=== PATIENT | female | born 1990 | race Caucasian/White ===

== ENCOUNTER 2017-10-26 10:15 | Emergency (ER) | payer MEDICAID, OTHER ==
[2017-10-26 11:07] VITALS: BP 135/73
--- NOTE | 2017-10-26 12:29 | ED ---
Respiratory - HPI Summary HPI Summary: 27 yr old female with cough, runny nose, myalgias, fever. Onset yesterday. She is 26 weeks . She thinks she has the flu. No other complaints. - History of Current Complaint Chief Complaint: UCGeneralIllness Stated Complaint: FLU SYMPTOMS Time Seen by Provider: 10/26/17 11:56 Pain Intensity: 7 - Allergy/Home Medications Allergies/Adverse Reactions: Allergies Allergy/AdvReac Type Severity Reaction Status Date / Time Penicillins Allergy Unknown Hives Verified 10/26/17 10:59 Sulfa Antibiotics Allergy Unknown Hives Verified 10/26/17 10:59 Home Medications: Home Medications Naproxen Sodium [Naproxen Sodium 220 mg cap] 220 mg PO DAILY PRN 10/26/17 [ History Confirmed 10/26/17] Vit W/ Iron Carbonyl- [ Plus Iron 29-1 mg] 1 tab PO DAILY 10/26 [History Confirmed 10/26/17] PMH/Surg Hx/FS Hx/Imm Hx Endocrine/Hematology History: Denies: Hx Anticoagulant Therapy, Hx Diabetes Cardiovascular History: Denies: Hx Congestive Heart Failure, Hx Hypertension - Surgical History Surgery Procedure, Year, and Place: tubes placed in her ears as a child Infectious Disease History: Yes Infectious Disease History: Reports: Hx of Known/Suspected MRSA Denies: Traveled Outside the [place] in Last 30 Days - Family History Known Family History: Positive: None - Social History Alcohol Use: Rare Substance Use Type: Reports: None Smoking Status (MU): Current Every Day Smoker Type: Cigarettes Amount Used/How Often: 1/2 PPD Length of Time of Smoking/Using Tobacco: 5 YRS Have You Smoked in the Last Year: Yes Review of Systems Positive: Fever, Chills Positive: Sore Throat, Nasal Discharge Positive: Cough All Other Systems Reviewed And Are Negative: Yes Physical Exam Triage Information Reviewed: Yes Vital Signs On Initial Exam: Initial Vitals Temp Pulse Resp BP Pulse Ox 98.3 F 99 26 135/73 99 10/26/17 11:01 10/26/17 11:01 10/26/17 11:01 10/26/17 11:01 10/26/17 11:01 Vital Signs Reviewed: Yes Appearance: Positive: Well-Appearing, No Pain Distress Skin: Positive: Warm, Skin Color Reflects Adequate Perfusion Head/Face: Positive: Normal Head/Face Inspection Eyes: Positive: EOMI ENT: Positive: Pharynx normal, Nasal congestion, TMs normal Neck: Positive: Nontender Respiratory/Lung Sounds: Positive: Clear to Auscultation, Breath Sounds Present Cardiovascular: Positive: RRR. Negative: Murmur Musculoskeletal: Positive: Strength/ROM Intact Neurological: Positive: Sensory/Motor Intact, Alert, Oriented to Person Place, Time, CN Intact II-III - Erik Coma Scale Best Eye Response: 4 - Spontaneous Best Motor Response: 6 - Obeys Commands Best Verbal Response: 5 - Oriented Coma Scale Total: 15 Diagnostics - Vital Signs Vital Signs Temp Pulse Resp BP Pulse Ox 10/26/17 11:01 98.3 F 99 26 135/73 99 - Laboratory Lab Results: Lab Results 10/26/17 Range/Units 12:02 Influenza A (Rapid) Positive H (Negative) Influenza B (Rapid) Negative (Negative) Lab Statement: Any lab studies that have been ordered have been reviewed, and results considered in the medical decision making process. Disposition - Course Course Of Treatment: 27 yr old female with Influenza A. I have discused the case with [employer] corporate relations director and they recommend Tamiflu for the 26 week woman as the benefits in their opinion outweigh risks. Dr Sayda Terrazas from the OB practice in [place], [place] was contacted by phone regarding this patient who is in their practice and recommends Tamiflu for this patient. The patient is asking for Tamiflu as well, and is aware I discussed this with her OB corporate relations director. - Diagnoses Provider Diagnoses: Influenza A Discharge - Discharge Plan Condition: Good Disposition: HOME Prescriptions: Oseltamivir CAP* [Tamiflu CAP*] 75 mg PO BID #10 cap Patient Education Materials: Influenza (ED) Referrals: No Primary Care Phys,NOPCP [Primary Care Provider] - Sayda Terrazas MD [Medical Doctor] -
== END 2017-10-26 12:45 | disposition home or self-care (01) ==
LOC: UCCORT 10:15
DX: O98.812 Other maternal infectious and parasitic diseases complicating pregnancy, second trimester (principal); J09.X2 Influenza due to identified novel influenza A virus with other respiratory manifestations; O99.332 Smoking (tobacco) complicating pregnancy, second trimester; F17.210 Nicotine dependence, cigarettes, uncomplicated; Z3A.26 26 weeks gestation of pregnancy; Z88.0 Allergy status to penicillin; Z88.2 Allergy status to sulfonamides
CPT/HCPCS: 87502; 99212; G0463

== ENCOUNTER 2018-01-20 20:52 | Inpatient (IN) | payer OTHER ==
[2018-01-20 21:52] LABS: ABS Basophils 0.1 10^3/ul (0-0.2); ABS Eosinophils 0.1 10^3/ul (0-0.6); ABS Lymphocytes 2.5 10^3/ul (1.0-4.8); ABS Monocytes 0.8 10^3/ul (0-0.8); ABS Nucleated RBC 0 10^3/ul; Eosinophil % 0.4 % (0-6); Hematocrit 40 % (35-47); Hemoglobin 14.1 g/dl (12.0-16.0); Lymphocyte % 18.9 % (25-47); Mean Corpuscular HGB Conc 35 g/dl (31-36); Mean Corpuscular Hemoglobin 31 pg (27-31); Mean Corpuscular Volume 88 fL (80-97); Mean Platelet Volume 8.5 um3 (7.4-10.4); Nucleated Red Blood Cells % 0; Platelet Count 235 10^3/ul (150-450); Red Blood Count 4.55 10^6/ul (4.0-5.4); Red Cell Distribution Width 13 % (10.5-15); White Blood Count 13.5 10^3/ul (3.5-10.8)
[2018-01-20] MEDS ORDERED: fentaNYL* 50 MCG/ML 2 ML VIAL (100 MCG VIAL) ONE ×2 (21:54→22:42)
[2018-01-20] MEDS ORDERED: Midazolam* 1 MG/ML 2 ML VIAL (2 MG) ONE (21:59)
[2018-01-20] MEDS ORDERED: Propofol* 10 MG/ML 20 ML BTL IV PUSH ONE ×2 (22:13→22:36)
[2018-01-20] MEDS ORDERED: Succinylcholine* 20 MG/ML 10 ML VIAL ONE (22:13)
[2018-01-20] MEDS ORDERED: Lidocaine 2% PF * 5 ML VIAL ONE (22:13)
[2018-01-20] MEDS ORDERED: NS 0.9% 100 ML* 100 ML with ceFOXitin(*) 2 GM IVPB ONE ×2 (22:15)
[2018-01-20] MEDS ORDERED: EPHEDrine (Pressors)* 50 MG/ML VIAL ONE (23:08)
[2018-01-20] MEDS ORDERED: OXYTOCIN* 10 UNITS/ML 1 ML VIAL ONE (23:09)
[2018-01-20] MEDS: fentaNYL* 50 MCG/ML 2 ML VIAL (100 MCG VIAL) IV PRN ×3 (23:12→23:46)
[2018-01-20] MEDS ORDERED: Naloxone* 0.4 MG/ML 1 ML VIAL IV PRN (23:17)
[2018-01-20] MEDS ORDERED: Ketorolac INJ* 30 MG/ML 1 ML VIAL IV PRN (23:17)
[2018-01-20] MEDS ORDERED: Ondansetron INJ* 2 MG/ML VIAL IV PRN (23:17)
[2018-01-20] MEDS ORDERED: Dibucaine 1% 28.35 GM TUBE PR PRN (23:18)
[2018-01-20] MEDS ORDERED: Acetaminophen TAB* 325 MG PO PRN (23:18)
[2018-01-20] MEDS ORDERED: Witch Hazel PAD* JAR TOPICAL PRN (23:18)
[2018-01-20] MEDS ORDERED: Glycerin ADULT SUPP PR PRN (23:18)
[2018-01-20] MEDS ORDERED: Ketorolac INJ* 30 MG/ML 1 ML VIAL ONE (23:29)
[2018-01-20] MEDS ORDERED: Oxytocin in LR* 20 UNITS/1,000 ML BAG IVPB SCH (23:45)
[2018-01-21] MEDS: fentaNYL* 50 MCG/ML 2 ML VIAL (100 MCG VIAL) IV PRN (00:15)
[2018-01-21] MEDS: oxyCODONE/Acetamin 5/325 MG* TAB PO PRN ×4 (03:18→20:13)
--- NOTE | 2018-01-21 05:06 | OP ---
OPERATIVE REPORT: DATE OF OPERATION: 01/20/18 - Inpatient, room [facility] [place] 118-01. DATE OF : [birth year]. SURGEON: Haleigh Swanson MD. SEARCH MANAGER: Rina Martinez CNM. SECOND PROVINCE ARCHIVIST: Dr. Buck. ANESTHESIOLOGIST: Dr. Fernandez. ANESTHESIA: General endotracheal. GLASS VIAL FILLER: Dr. Churchill. PRE-OP DIAGNOSES: Intrauterine 38-0/7 weeks, category 3 heart tracing remote from delivery; thick meconium. POST-OP DIAGNOSES: Intrauterine 38-0/7 weeks, category 3 heart tracing remote from delivery; thick meconium; delivered. OPERATIVE PROCEDURE: Primary low transverse section. INTRAVENOUS FLUIDS: 1800 cc of crystalloid. ESTIMATED BLOOD LOSS: 600 cc. URINE OUTPUT: 200 cc of clear yellow urine. FINDINGS: Revealed a vertex male infant, weight was 4 pounds 1 ounce, Apgars was 6 at one minute, 7 at five minutes. Intrauterine growth restriction, small placenta with meconium staining in the placenta. Normal-appearing tubes and ovaries bilaterally. Uterine cavity without retained placenta or membranes. COMPLICATIONS: None apparent. DISPOSITION: Stable to recovery room. DESCRIPTION OF PROCEDURE: The patient was placed in dorsal lithotomy position. The abdomen was prepped and draped in a sterile standard fashion. The patient was identified with the universal protocol. Rapid sequence induction was then carried out with general endotracheal anesthesia. An incision was made through the skin. This was carried down through the fascia. Fascia was scoured in the midline and extended bilaterally using Davis scissors and was bluntly superiorly and inferiorly. The peritoneum was then entered bluntly and the incision was extended bluntly. The bladder blade was inserted. Lower uterine segment was identified. Allis was used to tent up the lower uterine segment. The incision was extended bluntly and laterally. The infant was delivered, noted to have thick meconium. No evidence of nuchal cord. The cord was clamped. The was handed off to awaiting pattern generator operator. Appropriate cord blood was then obtained. The placentas was then manually extracted and noted to be small in nature with staining from meconium. Three vessel cord intact. The uterus was exteriorized, wrapped in warm moist laparotomy sponge. The uterine cavity was explored and noted to be free of any placental tissue or membranes. The incision itself in the uterus was reapproximated in 2 layers , first layer running locked, second layer running imbricated. The uterus was returned intraabdominally. Colic gutters were lavaged. Hemostasis was assured at the hysterotomy site. The peritoneum was then reapproximated using 3-0 Vicryl in a running fashion. Subfascial area was lavaged, hemostasis assured and the fascia was reapproximated using 0 Vicryl x2. Subcu was lavaged, hemostasis assured, Bovie coagulation, and the subcutaneous tissue was then reapproximated using a 2-0 Vicryl in an interrupted fashion for multiple closure sites of the subcutaneous Camper's fascia. The skin was then reapproximated using a 4-0 Monocryl in a subcuticular fashion. Mastisol and Steri- Strips applied. All sponge, needle, instrument, and blade counts were correct throughout the case. The patient tolerated the procedure well. The patient was taken then to recovery room after extubation. [id number]/[facility] #: [id number] [facility]ICAL CENTERKori
[2018-01-21] MEDS ORDERED: ceFOXitin(*) 2 GM in NS 0.9% 100 ML* 100 ML IVPB ONE (06:00)
[2018-01-21 07:35] LABS: ABS Basophils 0.1 10^3/ul (0-0.2); ABS Eosinophils 0.1 10^3/ul (0-0.6); ABS Lymphocytes 2.4 10^3/ul (1.0-4.8); ABS Monocytes 0.6 10^3/ul (0-0.8); ABS Neutrophils 8.8 10^3/ul (1.5-7.7); ABS Nucleated RBC 0 10^3/ul; Eosinophil % 0.4 % (0-6); Hematocrit 35 % (35-47); Hemoglobin 12.4 g/dl (12.0-16.0); Lymphocyte % 20.2 % (25-47); Mean Corpuscular HGB Conc 35 g/dl (31-36); Mean Corpuscular Hemoglobin 31 pg (27-31); Mean Corpuscular Volume 89 fL (80-97); Mean Platelet Volume 8.3 um3 (7.4-10.4); Nucleated Red Blood Cells % 0; Platelet Count 184 10^3/ul (150-450); Red Blood Count 3.97 10^6/ul (4.0-5.4); Red Cell Distribution Width 13 % (10.5-15)
[2018-01-21] MEDS ORDERED: Ferrous Gluconate TAB* 324 MG TAB PO SCH (09:00)
[2018-01-21] MEDS: Docusate CAP* 100 MG PO SCH ×3 (09:22→20:13)
[2018-01-21] MEDS: Simethicone TAB* 80 MG TAB.CHEW PO SCH ×4 (09:22→20:13)
[2018-01-21] MEDS: Ibuprofen TAB* 600 MG PO PRN ×2 (11:03→17:35)
[2018-01-21] MEDS: Nicotine PATCH 7 MG/24 HR* PATCH TRANSDERM SCH (11:17)
[2018-01-21] MEDS ORDERED: Influenza VAC *QUAD* 2017-18* 0.5 ML SYRINGE IM ONE (12:00)
[2018-01-21] MEDS ORDERED: Nicotine Patch Removal NOTE PATCH OFF SCH (21:00)
[2018-01-22] MEDS: Docusate CAP* 100 MG PO SCH ×3 (07:17→22:18)
[2018-01-22] MEDS: Simethicone TAB* 80 MG TAB.CHEW PO SCH ×4 (07:17→22:18)
[2018-01-22] MEDS: oxyCODONE/Acetamin 5/325 MG* TAB PO PRN ×3 (07:18→22:24)
[2018-01-22] MEDS: Ibuprofen TAB* 600 MG PO PRN (07:18)
[2018-01-22] MEDS: Ibuprofen TAB* 600 MG PO SCH ×3 (12:27→23:59)
[2018-01-22] MEDS: Nicotine PATCH 7 MG/24 HR* PATCH TRANSDERM SCH (17:24)
[2018-01-23] MEDS: Ibuprofen TAB* 600 MG PO SCH ×3 (06:11→19:53)
[2018-01-23] MEDS: Docusate CAP* 100 MG PO SCH ×2 (08:21→12:50)
[2018-01-23] MEDS: Simethicone TAB* 80 MG TAB.CHEW PO SCH ×3 (08:21→17:36)
[2018-01-23] MEDS: oxyCODONE/Acetamin 5/325 MG* TAB PO PRN (08:21)
[2018-01-23 08:29] VITALS: BP 136/77
[2018-01-23] MEDS: Nicotine PATCH 7 MG/24 HR* PATCH TRANSDERM SCH (12:51)
== END 2018-01-23 20:50 | disposition home or self-care (01) | DRG 540 ==
LOC: MCHOBOUT 20:52 → MCHOB 21:27
PROVIDERS: ADMIT Obstetrics & Gynecology; ATTEND Obstetrics & Gynecology
PROC: 10907ZC Drainage of Amniotic Fluid, Therapeutic from Products of Conception, Via Natural or Artificial Opening (ICD-10-PCS; 2018-01-20)
PROC: 10D00Z1 Extraction of Products of Conception, Low, Open Approach (ICD-10-PCS; 2018-01-20)
PROC: 4A1HXCZ Monitoring of Products of Conception, Cardiac Rate, External Approach (ICD-10-PCS; principal; 2018-01-20 21:54)
DX: O76 Abnormality in fetal heart rate and rhythm complicating labor and delivery (principal); Z68.42 Body mass index [BMI] 45.0-49.9, adult; O77.0 Labor and delivery complicated by meconium in amniotic fluid; O99.214 Obesity complicating childbirth; E66.9 Obesity, unspecified; O99.334 Smoking (tobacco) complicating childbirth; O36.5930 Maternal care for other known or suspected poor fetal growth, third trimester, not applicable or unspecified; F17.200 Nicotine dependence, unspecified, uncomplicated; Z3A.38 38 weeks gestation of pregnancy; Z37.0 Single live birth; Z88.0 Allergy status to penicillin; Z86.14 Personal history of Methicillin resistant Staphylococcus aureus infection
CPT/HCPCS: 36415; 80307; 85025; 86701; 86702; 86703; 86850; 86900; 86901; 87641; 88307; A9270-GY; J0330; J0694; J1885; J2250; J2590; J2704; J3010

== ENCOUNTER 2018-03-28 11:24 | Emergency (ER) | payer OTHER ==
[2018-03-28 12:06] VITALS: BP 116/66
--- NOTE | 2018-03-28 12:28 | UC ---
Skin Complaint HPI - HPI Summary HPI Summary: Patient states that she went to move her hands yesterday and felt something pop just below her scar. She noted a little bit of pus and clear liquid on her hand. She states that she has a history of MRSA so she just wanted to be safe and get it checked. The MRSA was a skin infection on her back. She denies any associated fever or abdominal pain. She is 8-9 weeks . - History of Current Complaint Hx Obtained From: Patient Hx Last Menstrual Period: pt has mirena in place since 03/19/18 Onset/Duration: Sudden Onset Pain Intensity: 0 Aggravating Factor(s): Nothing Alleviating Factor(s): Nothing Associated Signs & Symptoms: Negative: Fever, Chills, Rash <Belinda Rutledge - Last Filed: 03/28/18 12:37> <Eliz Gant - Last Filed: 03/28/18 13:13> - History of Current Complaint Chief Complaint: UCSkin Time Seen by Provider: 03/28/18 12:08 Stated Complaint: SKIN CONCERN - Allergy/Home Medications Allergies/Adverse Reactions: Allergies Allergy/AdvReac Type Severity Reaction Status Date / Time Penicillins Allergy Hives Verified 03/28/18 12:06 Sulfa (Sulfonamide Allergy Hives Verified 03/28/18 12:06 Antibiotics) Review of Systems Constitutional: Negative Skin: Rash - spot on abdomen popped Eyes: Negative ENT: Negative Respiratory: Negative Cardiovascular: Negative Gastrointestinal: Negative Genitourinary: Negative Motor: Negative Neurovascular: Negative Musculoskeletal: Negative Neurological: Negative Psychological: Negative Is Patient Immunocompromised?: No All Other Systems Reviewed And Are Negative: Yes <Belinda Rutledge - Last Filed: 03/28/18 12:37> PMH/Surg Hx/FS Hx/Imm Hx - Additional Past Medical History Additional PMH: 8-9 weeks post , MRSA Other History Of: Negative For: Anticoagulant Therapy - Surgical History Surgical History: Yes Surgery Procedure, Year, and Place: ear tubes. x 1 - Family History Known Family History: Positive: None - Social History Lives: With Family Alcohol Use: None Substance Use Type: None Smoking Status (MU): Heavy Every Day Tobacco Smoker Type: Cigarettes Amount Used/How Often: 1/2 PPD Length of Time of Smoking/Using Tobacco: since age 21 Have You Smoked in the Last Year: Yes Household Exposure Type: Cigarettes - Immunization History Most Recent Influenza Vaccination: unsure Most Recent Tetanus Shot: 2 years ago Most Recent Pneumonia Vaccination: unsure Vaccination Up to Date: Yes <Belinda Rutledge - Last Filed: 03/28/18 12:37> Physical Exam Triage Information Reviewed: Yes Appearance: Well-Appearing Vital Signs: Initial Vital Signs Temp 98 F 03/28/18 11:58 Pulse 67 03/28/18 11:58 Resp 14 03/28/18 11:58 BP 116/66 03/28/18 11:58 Pulse Ox 99 03/28/18 11:58 Vital Signs Reviewed: Yes Eyes: Positive: Conjunctiva Clear ENT: Positive: Normal ENT inspection Neck: Positive: Supple, Nontender, No Lymphadenopathy Respiratory: Positive: Lungs clear, Normal breath sounds Cardiovascular: Positive: RRR, No Murmur Abdomen Description: Positive: Nontender, No Organomegaly, Soft Bowel Sounds: Positive: Present Musculoskeletal: Positive: ROM Intact Neurological: Positive: Alert Psychological: Positive: Normal Response To Family, Age Appropriate Behavior Skin Exam: Normal, Other - 3mm superficial opening in skin just below the c- section scar. Base is pink. Not red, swollen, fluctuant and no draining. Explored with sterile Qtip and no additional depth-culture obtained. <Belinda Rutledge - Last Filed: 03/28/18 12:37> Vital Signs: Initial Vital Signs Temp 98 F 03/28/18 11:58 Pulse 67 03/28/18 11:58 Resp 14 03/28/18 11:58 BP 116/66 03/28/18 11:58 Pulse Ox 99 03/28/18 11:58 <Elzi Gant - Last Filed: 03/28/18 13:13> Course/Dx - Course Course Of Treatment: site cleaned with soap and water then antibiotic and small gauze(non occlusive ) applied. Nothing to suggest abscess, cellulitis or deep tissue infection. Given hx of MRSA plus hx suggest rupture of a pustule, I will cover with bactroban and close f/u for recheck. - Diagnoses Provider Diagnoses: Superficial skin wound <Belinda Rutledge - Last Filed: 03/28/18 12:37> Discharge - Sign-Out/Discharge Documenting (check all that apply): Discharge/Admit/Transfer - Billing Disposition and Condition Condition: STABLE Disposition: Home <Belinda Rutledge - Last Filed: 03/28/18 12:37> - Billing Disposition and Condition Condition: STABLE Disposition: Home <Eliz Gant - Last Filed: 03/28/18 13:13> - Discharge Plan Condition: Stable Disposition: HOME Prescriptions: Mupirocin 2% OINT* [Bactroban 2 % Oint*] 1 applic TOPICAL BID 10 Days #1 tube Patient Education Materials: MRSA (Methicillin-Resistant Staphylococcus Aureus ) (ED) Referrals: Haleigh Swanson MD [Medical Doctor] - 5 Days Attestation Statement User Type: Provider - I was available for consult. This patient was seen by the BI. The patient was not presented to, seen by, or examined by me. -He <Eliz Gant - Last Filed: 03/28/18 13:13>
== END 2018-03-28 12:48 | disposition home or self-care (01) ==
LOC: UCCORT 11:24
DX: S30.92XA Unspecified superficial injury of abdominal wall, initial encounter (principal); Z88.0 Allergy status to penicillin; Z88.2 Allergy status to sulfonamides; Z86.14 Personal history of Methicillin resistant Staphylococcus aureus infection; F17.210 Nicotine dependence, cigarettes, uncomplicated
CPT/HCPCS: 87070; 87205; 87640; 87641; 99201; G0463

== ENCOUNTER 2018-06-22 13:44 | Emergency (ER) | payer OTHER ==
[2018-06-22 14:54] VITALS: BP 139/83
--- NOTE | 2018-06-22 15:08 | UC ---
UC Dental HPI - HPI Summary HPI Summary: left last molar decayed swelling in jaw---gets pain relief with ibuprofen 800 mg. no fevers-just lost her insurance so she has not made a dental appointment - History of Current Complaint Chief Complaint: UCDentalProblem Stated Complaint: DENTAL Time Seen by Provider: 06/22/18 14:45 Hx Obtained From: Patient Hx Last Menstrual Period: pt has mirena in place since 03/19/18 ?: No Onset/Duration: Sudden Onset, Lasting Weeks - 1, Still Present Pain Intensity: 6 Pain Scale Used: 0-10 Numeric Aggravating Factor(s): Chewing Alleviating Factor(s): Other (see comments) - ibuprofen 800 Related History: Previous Dental Care on Same Tooth, Swelling - Allergies/Home Medications Allergies/Adverse Reactions: Allergies Allergy/AdvReac Type Severity Reaction Status Date / Time Penicillins Allergy Hives Verified 06/22/18 14:54 Sulfa (Sulfonamide Allergy Hives Verified 06/22/18 14:54 Antibiotics) PMH/Surg Hx/FS Hx/Imm Hx Previously Healthy: Yes Other History Of: Negative For: Anticoagulant Therapy - Surgical History Surgical History: Yes Surgery Procedure, Year, and Place: ear tubes. x 1 - Family History Known Family History: Positive: None - Social History Occupation: Works From/At Home Lives: With Family Alcohol Use: None Substance Use Type: None Smoking Status (MU): Heavy Every Day Tobacco Smoker Type: Cigarettes Amount Used/How Often: 1/2 PPD Length of Time of Smoking/Using Tobacco: since age 21 Have You Smoked in the Last Year: Yes Household Exposure Type: Cigarettes Cessation Counseling: Patient Advised to Stop - Immunization History Most Recent Influenza Vaccination: unsure Most Recent Tetanus Shot: 2 years ago Most Recent Pneumonia Vaccination: unsure Vaccination Up to Date: Yes Review of Systems Constitutional: Negative Skin: Negative Eyes: Negative ENT: Dental Pain Respiratory: Negative Cardiovascular: Negative Gastrointestinal: Negative Genitourinary: Negative Motor: Negative Neurovascular: Negative Musculoskeletal: Negative Neurological: Negative Psychological: Negative Is Patient Immunocompromised?: No All Other Systems Reviewed And Are Negative: Yes Physical Exam Triage Information Reviewed: Yes Appearance: Well-Appearing, No Pain Distress, Obese Vital Signs: Initial Vital Signs Temp 98.7 F 06/22/18 14:51 Pulse 100 06/22/18 14:51 Resp 18 06/22/18 14:51 BP 139/83 09/23/18 14:51 Pulse Ox 100 06/22/18 14:51 Vital Signs Reviewed: Yes Eye Exam: Normal Eyes: Positive: Conjunctiva Clear ENT Exam: Normal ENT: Positive: Normal ENT inspection, Hearing grossly normal, Pharynx normal, TMs normal, Dental tenderness, Uvula midline. Negative: Nasal congestion, Tonsillar swelling, Tonsillar exudate, Trismus, Muffled voice, Hoarse voice, Sinus tenderness Dental Exam: Normal Neck exam: Normal Neck: Positive: Supple, Nontender Respiratory Exam: Normal Respiratory: Positive: Chest non-tender, No respiratory distress, No accessory muscle use Cardiovascular Exam: Normal Cardiovascular: Positive: RRR, Pulses Normal, Brisk Capillary Refill Musculoskeletal Exam: Normal Musculoskeletal: Positive: Strength Intact, ROM Intact Neurological Exam: Normal Neurological: Positive: Alert, Muscle Tone Normal Psychological Exam: Normal Skin Exam: Normal Dental Complaint Course/Dx - Course Course Of Treatment: warm compress, clindamycin, ibuprofen, follow with [facility] - Differential Dx/Diagnosis Provider Diagnoses: abscess left lower jaw, nicotine dependant Discharge - Sign-Out/Discharge Documenting (check all that apply): Patient Departure All imaging exams completed and their final reports reviewed: No Studies - Discharge Plan Condition: Stable Disposition: HOME Prescriptions: Clindamycin Cap(NF) [Clindamycin Cap 300 mg Cap(NF)] 300 mg PO Q6H #40 cap Ibuprofen TAB* [Motrin TAB* 800 MG] 800 mg PO TID #30 tab Patient Education Materials: Dental Abscess (ED) Referrals: [facility] [Outside] - As Soon As Possible (for assistance with dental care) - Billing Disposition and Condition Condition: STABLE Disposition: Home
== END 2018-06-22 15:20 | disposition home or self-care (01) ==
LOC: UCEAST 13:44
DX: M27.2 Inflammatory conditions of jaws (principal); K08.89 Other specified disorders of teeth and supporting structures; Z88.0 Allergy status to penicillin; Z88.2 Allergy status to sulfonamides; F17.210 Nicotine dependence, cigarettes, uncomplicated
CPT/HCPCS: 99212; G0463